=== PATIENT | female | born 1935 | race Caucasian/White ===

== ENCOUNTER → 2023-11-13 15:00 | Outpatient (REF) | payer OTHER, SELFPAY | LOC: PAVMRI 15:00 | PROVIDERS: ATTENDING PHYSICIAN Psychiatry & Neurology Neurology; FAMILY PHYSICIAN Internal Medicine | DX: G91.8 Other hydrocephalus (principal) | CPT/HCPCS: 70551 ==

== ENCOUNTER → 2024-08-28 08:25 | Outpatient (REF) | payer OTHER, SELFPAY ==
[2024-08-28 09:51] LABS: % Basophils 1.2 % (0-2); % Eosinophils 4.4 % (0-6); % Immature Granulocytes 0.5 % (0-0.5); % Lymphocytes 19.1 % (20.5-51.1); % Monocytes 9.4 % (1.7-9.3); % Neutrophils 65.4 % (42.2-75.2); Absolute Basophils 0.1 10^3/uL (0-0.2); Absolute Eosinophils 0.3 10^3/uL (0-0.7); Absolute Lymphocytes 1.1 10^3/uL (1.2-3.4); Absolute Monocytes 0.6 10^3/uL (0.1-0.6); Absolute Neutrophils 3.8 10^3/uL (1.4-6.5); Hematocrit 43.1 % (37.0-47.0); Hemoglobin 13.8 g/dL (12.0-16.0); Mean Corpuscular Volume 90.5 fL (81.0-99.0); Mean Platelet Volume 10.9 fL (7.4-10.4); Nucleated Red Blood Cells % 0 %; Platelet Count 300 10^3/uL (130-400); Red Blood Cell Count 4.76 10^6/uL (4.20-5.40); Red Cell Dist. Width 13.5 % (11.5-14.5); White Blood Cell Count 5.9 10^3/uL (4.8-10.8)
[2024-08-28 10:16] LABS: Glycohemoglobin (HgbA1c) 6.8 % (4.0-5.6)
[2024-08-28 10:57] LABS: Microalbumin, Random Urine 10.9 mg/dl (0.6-1.7); Microalbumin/creatinine Ratio 319.6 mg/g
[2024-08-28 11:09] LABS: ALT (SGPT) 31 U/L (0-35); AST (SGOT) 29 U/L (14-36); Albumin 5.1 g/dl (3.5-5.0); Alkaline Phosphatase 60 U/L (38-126); Blood Urea Nitrogen 27 mg/dl (7-17); Calcium 10.1 mg/dl (8.4-10.2); Carbon Dioxide 28 mmol/L (22-30); Chloride 100 mmol/L (98-107); Glucose 117 mg/dl (70-99); HDL Cholesterol 47 mg/dl; LDL Cholesterol, Calculated 135 mg/dl; Potassium 4.7 mmol/L (3.5-5.1); Sodium 139 mmol/L (135-145); Total Bilirubin 1.1 mg/dl (0.2-1.3); Total Cholesterol 242 mg/dl (50-199); Triglyceride 300 mg/dl (10-149); Very Low Density Lipoprotein 60 mg/dl (0-30); eGFR 54.87
[2024-08-28 11:39] LABS: TSH 1.01 uIU/ml (0.47-4.68)
== END ==
LOC: REG 08:25
PROVIDERS: ATTENDING PHYSICIAN Internal Medicine
DX: E11.65 Type 2 diabetes mellitus with hyperglycemia (principal); E78.5 Hyperlipidemia, unspecified
CPT/HCPCS: 36415; 80053; 80061; 82043; 82570; 83036; 84443; 85025

== ENCOUNTER → 2024-09-17 10:05 | Outpatient (REF) | payer OTHER, SELFPAY | LOC: RAD 10:05 | PROVIDERS: ATTENDING PHYSICIAN Internal Medicine | DX: R18.8 Other ascites (principal) | CPT/HCPCS: 76700 ==

== ENCOUNTER → 2024-10-18 14:07 | Outpatient (REF) | payer OTHER, SELFPAY ==
[2024-10-18 15:32] LABS: C-Reactive Protein < 5.00 mg/L (0.0-10.00)
[2024-10-18 15:37] LABS: Erythrocyte Sed Rate 9 mm/hour (0-20)
[2024-10-18 15:49] LABS: Vitamin D, 25-OH*** 19.7 ng/mL (30-80)
[2024-10-18 16:02] LABS: TSH 1.61 uIU/ml (0.47-4.68)
[2024-10-18 16:38] LABS: Vitamin B12 302 pg/ml (239-931)
== END ==
LOC: REG 14:07
PROVIDERS: ATTENDING PHYSICIAN Psychiatry & Neurology Neurology; FAMILY PHYSICIAN Internal Medicine
DX: R41.3 Other amnesia (principal)
CPT/HCPCS: 36415; 82306; 82607; 82746; 84443; 85652; 86140; 86780